=== PATIENT | male | born 1945 | race Caucasian/White ===

== ENCOUNTER 2017-08-05 09:14 | Inpatient (IN) | payer MEDICARE, OTHER ==
[2017-08-05] MEDS ORDERED: IODIXANOL LOCM 100 ML BTL (10:33)
[2017-08-05] MEDS ORDERED: LIDOCAINE 1% (MDV) 20 ML INJ (10:33)
[2017-08-05] MEDS ORDERED: HEPARIN 1000 UNITS/ML 10 ML INJ (10:33)
[2017-08-05] MEDS ORDERED: FENTAnyl 50 MCG/ML VIAL (10:34)
[2017-08-05] MEDS ORDERED: NITROGLYCERIN (IC) 100 MCG/ML INJ (10:34)
[2017-08-05] MEDS ORDERED: MIDAZOLAM 1 MG/ML 2 ML INJ (10:34)
[2017-08-05] MEDS ORDERED: VERAPAMIL 5 MG INJ (10:34)
[2017-08-05] MEDS ORDERED: SOD CHLORIDE 0.9% 500 ML (10:34)
[2017-08-05] MEDS ORDERED: ASPIRIN 325 MG TAB (11:31)
[2017-08-05] MEDS ORDERED: TICAGRELOR 90 MG TABLET (11:31)
[2017-08-05] MEDS ORDERED: morphine 2 MG INJ IV (12:30)
[2017-08-05] MEDS ORDERED: ONDANSETRON 4 MG INJ IV (12:30)
[2017-08-05] MEDS ORDERED: BIVALIRUDIN 250MG /NS 50 ML 50 ML IVPB (15:38)
[2017-08-05] MEDS: SOD CHLORIDE 0.9% 1,000 ML IV (16:03)
[2017-08-05] MEDS ORDERED: ACETAMINOPHEN 325 MG TAB PO (19:00)
[2017-08-05] MEDS ORDERED: BACLOFEN 10 MG TAB NGT (19:00)
[2017-08-05 20:05] LABS: ADD MAN DIFF? NO
[2017-08-05 20:08] LABS: WHITE BLOOD COUNT 7.4 10^3/ul (4.8-10.8)
[2017-08-05 20:08] LABS: BASOPHILS % 0.4 % (0.0-2.0); EOSINOPHILS # 0.3 10^3/ul (0.0-0.5); EOSINOPHILS % 3.5 % (0.0-7.0); HEMATOCRIT 34.3 % (42.0-52.0); HEMOGLOBIN 11.8 g/dl (14.0-18.0); LYMPHOCYTES % 12.9 % (15.0-51.0); MEAN CORPUSCULAR HEMOGLOBIN 30.6 pg (29.0-33.0); MEAN CORPUSCULAR HGB CONC 34.4 g/dl (32.0-37.0); MEAN CORPUSCULAR VOLUME 89.1 fl (82.0-101.0); MEAN PLATELET VOLUME 11.2 fl (7.4-10.4); MONOCYTE # 0.9 10^3/ul (0.3-0.9); MONOCYTES % 11.7 % (0.0-11.0); NEUTROPHIL # 5.2 10^3/ul (1.6-7.5); NEUTROPHILS % 70.8 % (39.0-77.0); PLATELET COUNT 155 10^3/UL (140-415); RED BLOOD COUNT 3.85 10^6/ul (4.70-6.10)
[2017-08-05 20:25] LABS: ALANINE AMINOTRANSFERASE 43 IU/L (13-69); ALBUMIN 3.5 g/dl (3.3-4.9); ALBUMIN/GLOBULIN RATIO 1.25; ALKALINE PHOSPHATASE 59 IU/L (42-121); ANION GAP 6 (8-16); ASPARTATE AMINO TRANSFERASE 43 IU/L (15-46); BILIRUBIN,INDIRECT 0.7 mg/dl (0-1.1); BILIRUBIN,TOTAL 0.7 mg/dl (0.2-1.3); BLOOD UREA NITROGEN 14 mg/dl (7-20); CALCIUM 8.6 mg/dl (8.4-10.2); CARBON DIOXIDE 28 mmol/L (21-31); CHLORIDE 107 mmol/L (97-110); CREATININE 0.74 mg/dl (0.61-1.24); GLUCOSE 120 mg/dl (70-220); SODIUM 137 mmol/L (135-144); TOTAL PROTEIN 6.3 g/dl (6.1-8.1)
[2017-08-05] MEDS: ZOLPIDEM 5 MG TAB PO (21:15)
[2017-08-05] MEDS: ATORVASTATIN 20 MG TAB PO (21:15)
[2017-08-05] MEDS: LEVETIRACETAM 500 MG TAB PO (21:15)
[2017-08-05] MEDS: METOPROLOL 25 MG TAB PO (21:15)
[2017-08-06 06:42] LABS: ADD MAN DIFF? NO
[2017-08-06 06:50] LABS: WHITE BLOOD COUNT 8.3 10^3/ul (4.8-10.8)
[2017-08-06 06:50] LABS: BASOPHILS % 0.5 % (0.0-2.0); EOSINOPHILS # 0.2 10^3/ul (0.0-0.5); EOSINOPHILS % 2.4 % (0.0-7.0); HEMATOCRIT 35.7 % (42.0-52.0); LYMPHOCYTES % 12.4 % (15.0-51.0); MEAN CORPUSCULAR HEMOGLOBIN 30.2 pg (29.0-33.0); MEAN CORPUSCULAR HGB CONC 33.6 g/dl (32.0-37.0); MEAN CORPUSCULAR VOLUME 89.7 fl (82.0-101.0); MEAN PLATELET VOLUME 11.2 fl (7.4-10.4); MONOCYTE # 0.9 10^3/ul (0.3-0.9); MONOCYTES % 11.2 % (0.0-11.0); NEUTROPHIL # 6.1 10^3/ul (1.6-7.5); NEUTROPHILS % 72.8 % (39.0-77.0); PLATELET COUNT 165 10^3/UL (140-415); RED BLOOD COUNT 3.98 10^6/ul (4.70-6.10); RED CELL DISTRIBUTION WIDTH 12.8 % (11.5-14.5)
[2017-08-06 07:21] LABS: ANION GAP 11 (8-16); BLOOD UREA NITROGEN 15 mg/dl (7-20); CALCIUM 8.8 mg/dl (8.4-10.2); CARBON DIOXIDE 27 mmol/L (21-31); CHLORIDE 106 mmol/L (97-110); CREATININE 0.77 mg/dl (0.61-1.24); GLUCOSE 123 mg/dl (70-220); MAGNESIUM 2.1 mg/dl (1.7-2.5); PHOSPHORUS 2.3 mg/dl (2.5-4.9); POTASSIUM 4.6 mmol/L (3.5-5.1); SODIUM 139 mmol/L (135-144)
[2017-08-06] MEDS: METOPROLOL 25 MG TAB PO ×2 (08:47→21:11)
[2017-08-06] MEDS: ASPIRIN (EC) 81 MG TAB PO (08:48)
[2017-08-06] MEDS: LEVETIRACETAM 500 MG TAB PO ×2 (08:48→21:10)
[2017-08-06] MEDS: DOCUSATE SODIUM 250 MG CAP PO ×2 (10:21→21:10)
[2017-08-06] MEDS: ACETAMINOPHEN 325 MG TAB PO (10:26)
[2017-08-06] MEDS: HYDROCODONE/APAP (5/325) TAB PO ×2 (11:28→16:21)
[2017-08-06] MEDS: ATORVASTATIN 20 MG TAB PO (21:10)
[2017-08-06] MEDS: TICAGRELOR 90 MG TABLET PO (21:19)
[2017-08-07] MEDS: ASPIRIN (EC) 81 MG TAB PO (08:37)
[2017-08-07] MEDS: LOSARTAN 25 MG TAB PO (08:38)
[2017-08-07] MEDS: METOPROLOL 25 MG TAB PO ×2 (08:38→21:01)
[2017-08-07] MEDS: LEVETIRACETAM 500 MG TAB PO ×2 (08:38→21:00)
[2017-08-07] MEDS: TICAGRELOR 90 MG TABLET PO ×2 (08:41→21:02)
[2017-08-07] MEDS: HYDROCODONE/APAP (5/325) TAB PO ×3 (12:19→21:00)
[2017-08-07] MEDS: ATORVASTATIN 20 MG TAB PO (20:59)
[2017-08-07] MEDS: ZOLPIDEM 5 MG TAB PO (22:39)
[2017-08-08] MEDS: HYDROCODONE/APAP (5/325) TAB PO ×7 (01:00→20:59)
[2017-08-08] MEDS: FAMOTIDINE 20 MG TAB PO ×2 (09:17→20:59)
[2017-08-08] MEDS: ASPIRIN (EC) 81 MG TAB PO (09:17)
[2017-08-08] MEDS: LEVETIRACETAM 500 MG TAB PO ×2 (09:17→20:59)
[2017-08-08] MEDS: LOSARTAN 25 MG TAB PO (09:18)
[2017-08-08] MEDS: METOPROLOL 25 MG TAB PO ×2 (09:18→20:58)
[2017-08-08] MEDS: TICAGRELOR 90 MG TABLET PO ×2 (09:22→21:01)
[2017-08-08] MEDS: ATORVASTATIN 20 MG TAB PO (20:59)
[2017-08-08] MEDS: ZOLPIDEM 5 MG TAB PO (22:15)
[2017-08-09] MEDS: HYDROCODONE/APAP (5/325) TAB PO ×6 (01:00→21:00)
[2017-08-09 06:12] LABS: ADD MAN DIFF? NO
[2017-08-09 06:25] LABS: BASOPHIL # 0.1 10^3/ul (0.0-0.1); BASOPHILS % 0.5 % (0.0-2.0); EOSINOPHILS # 0.4 10^3/ul (0.0-0.5); EOSINOPHILS % 4.5 % (0.0-7.0); HEMATOCRIT 33.7 % (42.0-52.0); HEMOGLOBIN 11.6 g/dl (14.0-18.0); LYMPHOCYTES # 0.9 10^3/ul (0.8-2.9); LYMPHOCYTES % 9.4 % (15.0-51.0); MEAN CORPUSCULAR HEMOGLOBIN 30.3 pg (29.0-33.0); MEAN CORPUSCULAR HGB CONC 34.4 g/dl (32.0-37.0); MEAN PLATELET VOLUME 11.1 fl (7.4-10.4); MONOCYTES % 10.4 % (0.0-11.0); NEUTROPHIL # 7.1 10^3/ul (1.6-7.5); NEUTROPHILS % 73.5 % (39.0-77.0); PLATELET COUNT 204 10^3/UL (140-415); RED BLOOD COUNT 3.83 10^6/ul (4.70-6.10); RED CELL DISTRIBUTION WIDTH 13.2 % (11.5-14.5)
[2017-08-09 06:25] LABS: WHITE BLOOD COUNT 9.6 10^3/ul (4.8-10.8)
[2017-08-09 06:56] LABS: ANION GAP 11 (8-16); BLOOD UREA NITROGEN 17 mg/dl (7-20); CARBON DIOXIDE 25 mmol/L (21-31); CHLORIDE 105 mmol/L (97-110); CREATININE 0.76 mg/dl (0.61-1.24); GLUCOSE 123 mg/dl (70-220); MAGNESIUM 2.1 mg/dl (1.7-2.5); PHOSPHORUS 3.2 mg/dl (2.5-4.9); POTASSIUM 4.2 mmol/L (3.5-5.1); SODIUM 137 mmol/L (135-144)
[2017-08-09] MEDS: LOSARTAN 25 MG TAB PO (08:54)
[2017-08-09] MEDS: ASPIRIN (EC) 81 MG TAB PO (08:55)
[2017-08-09] MEDS: METOPROLOL 25 MG TAB PO ×2 (08:55→21:01)
[2017-08-09] MEDS: LEVETIRACETAM 500 MG TAB PO ×2 (08:55→21:00)
[2017-08-09] MEDS: FAMOTIDINE 20 MG TAB PO ×2 (08:56→21:03)
[2017-08-09] MEDS: TICAGRELOR 90 MG TABLET PO ×2 (09:04→21:05)
[2017-08-09] MEDS: ATORVASTATIN 20 MG TAB PO (21:00)
[2017-08-09] MEDS: ZOLPIDEM 5 MG TAB PO (21:40)
[2017-08-10] MEDS: HYDROCODONE/APAP (5/325) TAB PO ×6 (01:00→21:29)
[2017-08-10] MEDS: PANTOPRAZOLE (EC) 40 MG TAB PO (06:38)
[2017-08-10] MEDS: METOPROLOL 25 MG TAB PO ×2 (09:30→21:29)
[2017-08-10] MEDS: FAMOTIDINE 20 MG TAB PO ×2 (09:30→21:29)
[2017-08-10] MEDS: LOSARTAN 25 MG TAB PO (09:30)
[2017-08-10] MEDS: LEVETIRACETAM 500 MG TAB PO ×2 (09:30→21:28)
[2017-08-10] MEDS: ASPIRIN (EC) 81 MG TAB PO (09:30)
[2017-08-10] MEDS: TICAGRELOR 90 MG TABLET PO ×2 (09:55→21:30)
[2017-08-10] MEDS: ATORVASTATIN 20 MG TAB PO (21:29)
[2017-08-11] MEDS: HYDROCODONE/APAP (5/325) TAB PO ×6 (00:19→21:03)
[2017-08-11] MEDS: DOCUSATE SODIUM 250 MG CAP PO (06:41)
[2017-08-11] MEDS: PANTOPRAZOLE (EC) 40 MG TAB PO (06:41)
[2017-08-11 07:58] LABS: ADD MAN DIFF? NO
[2017-08-11 08:00] LABS: ANION GAP 13 (8-16); BLOOD UREA NITROGEN 18 mg/dl (7-20); CALCIUM 9.1 mg/dl (8.4-10.2); CARBON DIOXIDE 25 mmol/L (21-31); CHLORIDE 103 mmol/L (97-110); CREATININE 0.76 mg/dl (0.61-1.24); GLUCOSE 133 mg/dl (70-220); MAGNESIUM 2.4 mg/dl (1.7-2.5); PHOSPHORUS 3.2 mg/dl (2.5-4.9); POTASSIUM 4.3 mmol/L (3.5-5.1); SODIUM 137 mmol/L (135-144)
[2017-08-11 08:02] LABS: BASOPHIL # 0.1 10^3/ul (0.0-0.1); BASOPHILS % 0.7 % (0.0-2.0); EOSINOPHILS # 0.4 10^3/ul (0.0-0.5); EOSINOPHILS % 3.9 % (0.0-7.0); HEMATOCRIT 36.5 % (42.0-52.0); HEMOGLOBIN 12.4 g/dl (14.0-18.0); LYMPHOCYTES # 1.5 10^3/ul (0.8-2.9); LYMPHOCYTES % 15.8 % (15.0-51.0); MEAN CORPUSCULAR HEMOGLOBIN 30.3 pg (29.0-33.0); MEAN CORPUSCULAR VOLUME 89.2 fl (82.0-101.0); MEAN PLATELET VOLUME 10.9 fl (7.4-10.4); MONOCYTES % 10.9 % (0.0-11.0); NEUTROPHIL # 5.9 10^3/ul (1.6-7.5); NEUTROPHILS % 64.2 % (39.0-77.0); PLATELET COUNT 300 10^3/UL (140-415); RED BLOOD COUNT 4.09 10^6/ul (4.70-6.10); RED CELL DISTRIBUTION WIDTH 13.2 % (11.5-14.5)
[2017-08-11 08:02] LABS: WHITE BLOOD COUNT 9.2 10^3/ul (4.8-10.8)
[2017-08-11] MEDS: LEVETIRACETAM 500 MG TAB PO ×2 (08:56→21:02)
[2017-08-11] MEDS: ASPIRIN (EC) 81 MG TAB PO (08:56)
[2017-08-11] MEDS: FAMOTIDINE 20 MG TAB PO ×2 (08:56→21:02)
[2017-08-11] MEDS: LOSARTAN 25 MG TAB PO (08:56)
[2017-08-11] MEDS: METOPROLOL 25 MG TAB PO ×2 (08:56→21:03)
[2017-08-11] MEDS: TICAGRELOR 90 MG TABLET PO ×2 (09:01→21:21)
[2017-08-11] MEDS: ATORVASTATIN 20 MG TAB PO (21:02)
[2017-08-11] MEDS: ZOLPIDEM 5 MG TAB PO (21:03)
[2017-08-12] MEDS: HYDROCODONE/APAP (5/325) TAB PO ×4 (01:00→13:00)
[2017-08-12] MEDS: PANTOPRAZOLE (EC) 40 MG TAB PO (06:43)
[2017-08-12] MEDS: TICAGRELOR 90 MG TABLET PO (10:16)
[2017-08-12] MEDS: LEVETIRACETAM 500 MG TAB PO (10:16)
[2017-08-12] MEDS: FAMOTIDINE 20 MG TAB PO (10:16)
[2017-08-12] MEDS: ASPIRIN (EC) 81 MG TAB PO (10:16)
[2017-08-12] MEDS: METOPROLOL 25 MG TAB PO (10:17)
[2017-08-12] MEDS: LOSARTAN 25 MG TAB PO (10:17)
== END 2017-08-12 14:47 | disposition home health service (06) | DRG 247 ==
LOC: CCL 09:14 → TEL 08-12 11:40 → CCL 09:14 → TEL 12:22
PROC: 027034Z Dilation of Coronary Artery, One Artery with Drug-eluting Intraluminal Device, Percutaneous Approach (ICD-10-PCS; principal; 2017-08-05 10:25)
PROC: 4A023N7 Measurement of Cardiac Sampling and Pressure, Left Heart, Percutaneous Approach (ICD-10-PCS; 2017-08-05 10:25)
PROC: B211YZZ Fluoroscopy of Multiple Coronary Arteries using Other Contrast (ICD-10-PCS; 2017-08-05 10:25)
DX: I21.4 Non-ST elevation (NSTEMI) myocardial infarction (principal); I49.5 Sick sinus syndrome; R56.9 Unspecified convulsions; S42.91XA Fracture of right shoulder girdle, part unspecified, initial encounter for closed fracture; I35.0 Nonrheumatic aortic (valve) stenosis; I49.8 Other specified cardiac arrhythmias; I10 Essential (primary) hypertension; S43.084A Other dislocation of right shoulder joint, initial encounter; K21.9 Gastro-esophageal reflux disease without esophagitis; K59.00 Constipation, unspecified; X58.XXXA Exposure to other specified factors, initial encounter; R53.81 Other malaise; M54.9 Dorsalgia, unspecified; Z95.0 Presence of cardiac pacemaker; Z86.74 Personal history of sudden cardiac arrest; Z86.19 Personal history of other infectious and parasitic diseases
CPT/HCPCS: 72100; 73030-RT; 73200; 80048; 80053; 83735; 84100; 85025; 87081; 93458; 95819; 97110; 97116; 97162; 97530